=== PATIENT | male | born 1960 | race Caucasian/White ===

== ENCOUNTER 2022-01-22 14:03 | Emergency (ER) | payer MEDICAID ==
[~2022-01-22] VITALS: Ht 188 cm; Wt 81.8 kg
[2022-01-22 14:38] VITALS: BP 156/105
[2022-01-22] MEDS ORDERED: normal saline 1000ml 1,000 ML IV ONE (14:45)
[2022-01-22 15:06] LABS: BASOPHILS % (AUTO) 0.4 % (0-1); EOSINOPHILS # (AUTO) 0.3 X10'3 (0-0.9); EOSINOPHILS % (AUTO) 3.9 % (0-6); HEMATOCRIT 48.5 % (42.0-52.0); HEMOGLOBIN 16.5 g/dl (14.0-17.9); LYMPHOCYTES # (AUTO) 1.8 X10'3 (1.1-4.8); LYMPHOCYTES % (AUTO) 27.2 % (21-51); MEAN CORPUSCULAR HEMOGLOBIN 29.6 PG (27.0-31.0); MEAN PLATELET VOLUME 7.6 FL (7.4-10.4); MONOCYTES # (AUTO) 0.5 X10'3 (0-0.9); MONOCYTES % (AUTO) 8.3 % (2-12); NEUTROPHILS # (AUTO) 3.9 X10'3 (1.8-7.7); NEUTROPHILS % (AUTO) 60.2 % (42-75); PLATELET COUNT 215 X10'3 (140-440); RED BLOOD COUNT 5.58 X10'6 (4.70-6.10); WHITE BLOOD COUNT 6.6 X10'3 (4.5-11.0)
[2022-01-22 15:28] LABS: ALANINE AMINOTRANSFERASE 22 U/L (12-78); ALBUMIN 3.8 G/DL (3.4-5.0); ALBUMIN/GLOBULIN RATIO 1.2 (1.1-1.5); ALKALINE PHOSPHATASE 56 IU/L (46-116); ANION GAP 13 (8-16); ASPARTATE AMINO TRANSFERASE 18 U/L (10-37); BILIRUBIN,TOTAL 0.9 MG/DL (0.1-1.0); BLOOD UREA NITROGEN 15 MG/DL (7-18); BUN/CREATININE RATIO 14.6 (5.4-32.0); CALCIUM 9.1 MG/DL (8.5-10.1); CHLORIDE 101 MMOL/L (99-107); CREATININE 1.03 MG/DL (0.60-1.10); GLUCOSE 94 MG/DL (70-104); POTASSIUM 3.1 MMOL/L (3.5-5.1); SODIUM 141 MMOL/L (135-145); TOTAL CARBON DIOXIDE 27.4 MMOL/L (24-32); eGFR 73 ML/MIN
[2022-01-22 15:31] LABS: MAGNESIUM 2.1 MG/DL (1.5-2.4)
[2022-01-22] MEDS ORDERED: potassium Cl 20 mEq SR tablet PO ONE (15:35)
[2022-01-22 18:09] LABS: CLARITY,URINE CLEAR (Clear); COLOR,URINE YELLOW (Yellow); GLUCOSE, URINE NEGATIVE (Neg); KETONES,URINE NEGATIVE (Neg); LEUKOCYTE ESTERASE ,URINE NEGATIVE (Neg); NITRITES, URINE NEGATIVE (Neg); OCCULT BLOOD,URINE NEGATIVE (Neg); PROTEIN,URINE NEGATIVE (Neg); UROBILINOGEN,URINE 0.2 E.U/dL (0.2-1.0)
[2022-01-22 18:10] LABS: UA COLLECTION TYPE CLN CATCH MIDSTREAM
== END 2022-01-22 17:50 | disposition home or self-care (01) ==
LOC: ER 14:04
DX: R07.9 Chest pain, unspecified (principal); E86.0 Dehydration; I10 Essential (primary) hypertension
CPT/HCPCS: 36415; 71045; 80053; 81003; 83735; 83880; 84484; 85025; 93005; 96360; 99285; J7030

== ENCOUNTER 2024-06-27 22:23 | Emergency (ER) | payer MEDICAID ==
[~2024-06-27] VITALS: Ht 180.3 cm; Wt 63.7 kg
[2024-06-27 23:38] LABS: BASOPHILS % (AUTO) 0.2 % (0-1); EOSINOPHILS # (AUTO) 0.3 X10'3 (0-0.9); EOSINOPHILS % (AUTO) 3.3 % (0-6); HEMATOCRIT 43.6 % (42.0-52.0); HEMOGLOBIN 14.8 g/dl (14.0-17.9); LYMPHOCYTES % (AUTO) 20.4 % (21-51); MEAN CORPUSCULAR HEMOGLOBIN 30.8 PG (27.0-31.0); MEAN CORPUSCULAR HGB CONC 33.9 g/dL (33.0-36.5); MEAN CORPUSCULAR VOLUME 90.8 FL (78-98); MEAN PLATELET VOLUME 8.2 FL (7.4-10.4); MONOCYTES # (AUTO) 0.6 X10'3 (0-0.9); MONOCYTES % (AUTO) 6.6 % (2-12); NEUTROPHILS # (AUTO) 6.8 X10'3 (1.8-7.7); NEUTROPHILS % (AUTO) 69.5 % (42-75); PLATELET COUNT 223 X10'3 (140-440); RED CELL DISTRIBUTION WIDTH 13.4 % (11.5-14.5); WHITE BLOOD COUNT 9.8 X10'3 (4.5-11.0)
[2024-06-27 23:38] LABS: BILIRUBIN,URINE NEGATIVE (Neg); CLARITY,URINE CLEAR (Clear); COLOR,URINE YELLOW (Yellow); GLUCOSE, URINE NEGATIVE (Neg); KETONES,URINE TRACE mg/dl (Neg); LEUKOCYTE ESTERASE ,URINE NEGATIVE (Neg); NITRITES, URINE NEGATIVE (Neg); OCCULT BLOOD,URINE NEGATIVE (Neg); PH,URINE 5.5 (4.8-8.0); PROTEIN,URINE NEGATIVE (Neg); UROBILINOGEN,URINE 0.2 E.U/dL (0.2-1.0)
[2024-06-27 23:40] LABS: UA COLLECTION TYPE CLN CATCH MIDSTREAM
[2024-06-27 23:45] LABS: ALBUMIN 3.4 G/DL (3.4-5.0); ANION GAP 6 (8-16); BLOOD UREA NITROGEN 24 MG/DL (7-18); BUN/CREATININE RATIO 20.7 (10.0-20.0); CALCIUM 8.5 MG/DL (8.5-10.1); CHLORIDE 110 MMOL/L (99-107); CREATININE 1.16 MG/DL (0.60-1.10); POTASSIUM 3.9 MMOL/L (3.5-5.1); SODIUM 146 MMOL/L (135-145); TOTAL CARBON DIOXIDE 30.4 MMOL/L (24-32); eCRCL 58 ML/MIN; eGFR 63 ML/MIN
[2024-06-27 23:51] LABS: GLUCOSE 100 MG/DL (70-104)
[2024-06-28] MEDS ORDERED: IBUP-1984 PO (05:04)
[2024-06-28 05:06] VITALS: BP 144/86; PULSE 86; RESP 14; TEMP 97.9; O2SAT 96
== END 2024-06-28 05:51 | disposition home or self-care (01) ==
LOC: ER 22:24
DX: M54.50 Low back pain, unspecified (principal); R10.9 Unspecified abdominal pain; I10 Essential (primary) hypertension
CPT/HCPCS: 36415; 80048; 81003; 85025; 99283

== ENCOUNTER 2024-09-26 14:14 | Outpatient (CLI) | payer MEDICAID | END 2024-09-26 23:59 | disposition home or self-care (01) | LOC: RAD 14:14 | PROVIDERS: ATTEND Family Medicine | DX: M79.641 Pain in right hand (principal) | CPT/HCPCS: 73110; 73130 ==